=== PATIENT | female | born 1985 | race Caucasian/White ===

== ENCOUNTER → 2017-01-30 | Outpatient (CLI) | payer BC ==
[~2017-01-30] MED LIST: EFFSR150 PO; HYDR-3419 PO; KETO0.5S33 OPR; OPTIRAY 320 IV PRN
--- NOTE | 2017-01-30 15:26 | DIAGNOSTIC IMAGING REPORT ---
CT ANGIOGRAM OF THE CHEST CLINICAL HISTORY: Dyspnea. Tachycardia. COMPARISON STUDY: Chest CT dated 10/28/2010. Chest radiographs dated 03/31/2011. TECHNIQUE: Following the IV administration of 102 cc of Optiray 320, CT angiogram of the chest was performed from the upper abdomen to the thoracic inlet utilizing the pulmonary embolus protocol. Images are reviewed in the axial, sagittal, and coronal planes. 3-D MIPS images are created and assessed. IV contrast was administered without complication. A dose lowering technique was utilized adhering to the principles of ALARA. CT DOSE: 651.56 mGy.cm FINDINGS: Thyroid: Imaged portions of the thyroid gland are normal in size and attenuation. Thoracic aorta: The thoracic aorta is normal in caliber and demonstrates standard 3-vessel arch anatomy. No dissection is seen. Pulmonary vasculature: The pulmonary trunk is normal in caliber. There are no filling defects identified in main, lobar, or segmental pulmonary branches to suggest pulmonary embolus. Heart: The heart is normal in size and configuration, and without pericardial effusion. Lungs and pleural spaces: There is patchy groundglass consolidation seen throughout the lungs bilaterally, most confluent in the lower lobes. The trachea and central airways are clear. No pleural effusion is identified. Mediastinum: There are subcentimeter mediastinal lymph nodes. These are not pathologically enlarged by size criteria. Pat: Clear. Axillae: There is no axillary lymphadenopathy. Upper abdomen: The spleen is enlarged measuring 15.1 cm in length. A tiny hiatal hernia is noted. There is evidence of hepatic steatosis. Skeletal structures: No lytic or blastic bony lesions are seen. IMPRESSION: 1. There is no evidence of pulmonary embolus in the main, lobar, or segmental pulmonary arteries. 2. Patchy groundglass consolidation is seen throughout both lungs, typical in appearance for an infectious/inflammatory pneumonitis. Radiographic follow-up to resolution is recommended. 3. Splenomegaly. Electronically signed by: Matthias Zamora M.D. 01/30/2017 3:25 PM Dictated Date/Time: 01/30/2017 3:20 PM
== END | disposition home or self-care (01) ==
LOC: C.CTS 14:24
PROVIDERS: ATTEND Family Medicine
DX: R91.8 Other nonspecific abnormal finding of lung field (principal); R06.00 Dyspnea, unspecified; Z72.0 Tobacco use; R00.0 Tachycardia, unspecified; R50.9 Fever, unspecified; R16.1 Splenomegaly, not elsewhere classified

== ENCOUNTER → 2017-02-15 | Outpatient (CLI) | payer BC ==
[~2017-02-15] MED LIST changes: -OPTIRAY 320 IV PRN
--- NOTE | 2017-02-15 17:11 | DIAGNOSTIC IMAGING REPORT ---
CHEST 2 VIEWS ROUTINE CLINICAL HISTORY: R05,R53.83,R07.89,R06.02 dyspnea COMPARISON STUDY: 05/09/2010 FINDINGS: The bones soft tissues and hemidiaphragms are normal. The cardiomediastinal silhouette is normal. The lungs are clear. The pulmonary vasculature is normal. Mild left basilar chronic interstitial change. IMPRESSION: Chronic change. No acute process. The above report was generated using voice recognition software. It may contain grammatical, syntax or spelling errors. Electronically signed by: Miguel Loredo M.D. 02/15/2017 5:09 PM Dictated Date/Time: 02/15/2017 5:08 PM
== END | disposition home or self-care (01) ==
LOC: C.RAD1850 16:55
PROVIDERS: ATTEND Nurse Practitioner Family
DX: R05 Cough (principal); R53.83 Other fatigue; R07.89 Other chest pain; R06.02 Shortness of breath

== ENCOUNTER → 2017-02-27 | Outpatient (CLI) | payer BC ==
--- NOTE | 2017-02-27 10:21 | DIAGNOSTIC IMAGING REPORT ---
C-SPINE ROUTINE 4 OR 5 VIEWS CLINICAL HISTORY: R20.0,R52 bilateral arm and leg numbness and tingling. COMPARISON STUDY: May 2010 FINDINGS: The prevertebral soft tissues are normal. No fractures or subluxations are visualized. There are no erosive or destructive changes. IMPRESSION: Unremarkable conventional radiographic evaluation of the cervical spine. Electronically signed by: Obed Turner M.D. 02/27/2017 10:19 AM Dictated Date/Time: 02/27/2017 10:19 AM
== END | disposition home or self-care (01) ==
LOC: C.RAD1850 09:47
PROVIDERS: ATTEND Nurse Practitioner Family
DX: R20.0 Anesthesia of skin (principal); R52 Pain, unspecified

== ENCOUNTER → 2017-04-06 | Outpatient (CLI) | payer BC ==
[~2017-04-06] MED LIST changes: +OPTIRAY 320 IV PRN
--- NOTE | 2017-04-06 13:36 | DIAGNOSTIC IMAGING REPORT ---
CT SCAN OF THE CHEST WITH IV CONTRAST CLINICAL HISTORY: Follow-up groundglass consolidation. COMPARISON STUDY: Chest x-ray dated 02/15/2017. Chest CT scans dated 01/30/2017 and 05/08/2010 TECHNIQUE: Following the IV administration of 94 cc of Optiray 320, CT scan of the thorax was performed from the thoracic inlet to the upper abdomen. Images are reviewed in the axial, sagittal, and coronal planes. IV contrast was administered without complication. A dose lowering technique was utilized adhering to the principles of ALARA. CT DOSE: 704.08 mGycm FINDINGS: Thyroid: Imaged portions of the thyroid gland are normal in size and attenuation. Thoracic aorta: The thoracic aorta is normal in caliber and demonstrates standard 3-vessel arch anatomy. No dissection is seen. Pulmonary vasculature: The pulmonary trunk is normal in caliber. There are no filling defects identified in the central pulmonary vessels to indicate pulmonary embolus. Note that this examination was not protocoled for evaluation of the pulmonary arteries. Heart: The heart is normal in size and configuration, and without pericardial effusion. Lungs and pleural spaces: The lungs and pleural spaces are clear. The trachea and central airways are patent. Mediastinum: There is no mediastinal lymphadenopathy. Pat: Clear. Axillae: There is no axillary lymphadenopathy. Upper abdomen: The spleen is enlarged, measuring 15.3 cm in length. Findings suggest hepatic steatosis. Skeletal structures: No lytic or blastic bony lesions are seen. IMPRESSION: 1. The lungs are clear. Ground glass consolidation seen on 01/30/2017 has resolved. 2. Splenomegaly. 3. Suspect hepatic steatosis. Electronically signed by: Matthias Zamora M.D. 04/06/2017 1:34 PM Dictated Date/Time: 04/06/2017 1:31 PM
== END | disposition home or self-care (01) ==
LOC: C.CTS 12:59
PROVIDERS: ATTEND Internal Medicine Critical Care Medicine
DX: I77.6 Arteritis, unspecified (principal); R93.8 Abnormal findings on diagnostic imaging of other specified body structures